=== PATIENT | female | born 1995 | race Caucasian/White ===

== ENCOUNTER 2022-05-09 10:53 | Inpatient (IN) ==
[2022-05-09] MEDS ORDERED: PHENERGAN INJ 25 MG IM PRN ×2 (10:56→17:44)
[2022-05-09] MEDS ORDERED: PITOCIN IVP ONE (10:56)
[2022-05-09] MEDS ORDERED: NUBAIN INJ 20 MG AMP IVP PRN (10:56)
[2022-05-09] MEDS ORDERED: D5 LR + PITOCIN 10 UNITS/L 10 UNITS/1,000 ML BAG IV PRN (10:56)
[2022-05-09] MEDS ORDERED: REGLAN INJ 10 MG VIAL IVP PRN (10:56)
[2022-05-09] MEDS ORDERED: STADOL INJ IVP PRN (10:58)
[2022-05-09] MEDS ORDERED: D5 1/2 NS 1,000 ML 1,000 ML IV ONE (11:08)
[2022-05-09] MEDS ORDERED: BETADINE SOLN ONE (11:08)
[2022-05-09] MEDS ORDERED: PITOCIN ONE (11:08)
[2022-05-09] MEDS ORDERED: D5 LR + PITOCIN 10 UNITS/L 10 UNITS/1,000 ML BAG IV ONE (11:09)
[2022-05-09] MEDS: D5 1/2 NS 1,000 ML 1,000 ML IV SCH ×2 (11:18→19:53)
[2022-05-09] MEDS ORDERED: LR 1,000 ML IV 1,000 ML IV ONE ×2 (11:33→14:09)
[2022-05-09 11:34] LABS: BASOPHILS # (AUTO) 0.1 X10^3/uL (0.0-0.1); BASOPHILS % (AUTO) 0.4 % (0.2-1.0); EOSINOPHILS # (AUTO) 0.1 x10^3/uL (0.0-0.2); EOSINOPHILS % (AUTO) 0.8 % (0.9-2.9); HEMATOCRIT 29.8 % (36.0-47.0); HEMOGLOBIN 9.7 g/dL (12.0-16.0); LYMPHOCYTES # (AUTO) 2.6 X10^3/uL (1.3-2.9); LYMPHOCYTES % (AUTO) 14.4 % (21.0-51.0); MEAN CORPUSCULAR HEMOGLOBIN 24.1 pg (27.0-34.0); MEAN CORPUSCULAR HGB CONC 32.6 g/dL (33.0-35.0); MEAN CORPUSCULAR VOLUME 73.9 fL (80.0-100.0); MEAN PLATELET VOLUME 6.9 fL (7.4-11.0); MONOCYTES # (AUTO) 1.2 x10^3/uL (0.3-0.8); MONOCYTES % (AUTO) 6.7 % (0.0-13.0); NEUTROPHILS # (AUTO) 14.3 x10^3/uL (2.2-4.8); NEUTROPHILS % (AUTO) 77.7 % (42.0-75.0); RED BLOOD COUNT 4.03 X10^6/uL (3.5-5.4); RED CELL DISTRIBUTION WIDTH 17.6 % (11.6-16.5); WHITE BLOOD COUNT 18.3 X10^3/uL (3.6-10.0)
[2022-05-09 11:37] LABS: BLOOD UREA NITROGEN 10 mg/dL (7-18); CALCIUM 8.4 mg/dL (8.5-10.1); CARBON DIOXIDE 20.2 mmol/L (21-32); CHLORIDE 105 mmol/L (98-107); CREATININE 0.77 mg/dL (0.55-1.02); SODIUM 140 mmol/L (136-145); eGFR NON BLACK RACES > 60 (>60)
[2022-05-09 11:52] LABS: APPEARANCE,URINE CLOUDY (CLEAR); BILIRUBIN,URINE 1+ (NEGATIVE); BLOOD/HEMOGLOBIN,URINE 3+ (NEGATIVE); COLOR,URINE YELLOW (YELLOW); GLUCOSE, URINE NEGATIVE (NEGATIVE); KETONES,URINE 1+ (NEGATIVE); LEUKOCYTE ESTERASE ,URINE 1+ (NEGATIVE); NITRITES,URINE NEGATIVE (NEGATIVE); PROTEIN,URINE 2+ (NEGATIVE); UROBILINOGEN,URINE 1+ (NORMAL)
[2022-05-09 11:53] LABS: BACTERIA,URINE 1+ /HPF (NEGATIVE); SQUAMOUS EPITHELIAL CELL,UR MODERATE /HPF (NEGATIVE)
[2022-05-09] MEDS: D5 1/2 NS 1,000 mL + PITOCIN 20 UNITS/L IV 20 UNITS/1,000 ML BAG IV ONE ×2 (11:58→11:59)
[2022-05-09 12:25] LABS: ANISOCYTOSIS SLIGHT; HYPOCHROMASIA SLIGHT; MICROCYTOSIS SLIGHT; PLATELET MORPHOLOGY COMMENT NORMAL (NORMAL); STOMATOCYTES SLIGHT
--- NOTE | 2022-05-09 12:30 | DR.OB ---
OB Quick Note - Assessment/Plan Assessment/Plan: L&D 05/09/22 at 12:05pm S-No complaint. O-Afebrile,VSS ENM=418 with good LTV, +accel, no decel. CTX=q 5 min., mod. by palpation CVX=3cm/75%/-1/VTX IUPC and FSE placed. A-IUP at 39 0/7 weeks with SROM Rh- P-Begin pitocin augmentation Anticipate
[2022-05-09] MEDS ORDERED: STADOL INJ ONE (13:49)
[2022-05-09] MEDS ORDERED: ZOFRAN INJ 4 MG VIAL ONE (13:49)
[2022-05-09] MEDS ORDERED: NAROPIN EPIDURAL 0.2% 100 ML ONE (14:09)
[2022-05-09] MEDS ORDERED: FENTANYL VIAL INJ 100 mcg ONE (14:09)
[2022-05-09] MEDS: D5 1/2 NS 1,000 ML 1,000 ML with PITOCIN 20 UNITS IV SCH ×2 (17:25)
--- NOTE | 2022-05-09 17:44 | DR.OB ---
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 Head delivered over intact perineum. Nose and mouth bulb suctioned. No nuchal cord. Body delivered over intact perineum. Cord clamped x 2 and cut. handed to attendant. Cord sent for gases. Placenta delivered spontaneously / intact / 3 vessel cord. No CVX tears. A small midline second degree tear noted and repaired with 0-vicryl in usual fashion. Viable female infant, VTX/OA, wt=8'7" and 8/9, stable to NBN. Mother stable to RR. BTE=[id number].
[2022-05-09] MEDS ORDERED: HYPERRHO S/D (or RHOGAM) IM PRN (18:19)
[2022-05-09] MEDS ORDERED: DERMOPLAST PAIN RELIEF SPRAY TOP PRN (18:19)
[2022-05-09] MEDS ORDERED: MILK OF MAGNESIA PO PRN (18:19)
[2022-05-09] MEDS ORDERED: ADACEL or BOOSTRIX TDaP VACCINE IM ONE ×2 (18:19→21:36)
[2022-05-09] MEDS ORDERED: AMBIEN PO PRN (18:19)
[2022-05-09] MEDS: MOTRIN TAB 800 MG PO PRN (21:26)
[2022-05-10] MEDS ORDERED: TORADOL 15 MG VIAL IVP PRN (01:26)
[2022-05-10] MEDS: D5 1/2 NS 1,000 ML 1,000 ML with PITOCIN 20 UNITS IV SCH ×6 (02:07→18:12)
[2022-05-10] MEDS: D5 1/2 NS 1,000 ML 1,000 ML IV SCH (02:07)
[2022-05-10 05:13] LABS: HEMATOCRIT 26.1 % (36.0-47.0); HEMOGLOBIN 8.5 g/dL (12.0-16.0)
[2022-05-10] MEDS: MOTRIN TAB 800 MG PO PRN ×2 (08:16→17:07)
[2022-05-10] MEDS ORDERED: PRENATAL PLUS PO SCH (09:00)
[2022-05-10 16:07] VITALS: BP 123/69
== END 2022-05-10 20:00 | disposition home or self-care (01) | DRG 807 ==
LOC: LD 10:53 → MED/SURG 19:24
PROVIDERS: ADMIT Specialist; ATTEND Specialist
DX: K21.9 Gastro-esophageal reflux disease without esophagitis; O70.1 Second degree perineal laceration during delivery; Z37.0 Single live birth; O99.613 Diseases of the digestive system complicating pregnancy, third trimester; Z3A.39 39 weeks gestation of pregnancy